=== PATIENT | female | born 1990 | race African-American/Black ===

== ENCOUNTER 2017-02-09 14:13 | Emergency (ER) | payer OTHER ==
[~2017-02-09] VITALS: Ht 162.6 cm; Wt 49.9 kg
[~2017-02-09 14:13] MED LIST: ACYC-63 PO
[2017-02-09 14:20] VITALS: BP 111/76
--- NOTE | 2017-02-09 14:31 | ED.ADGEN ---
Past History Past Medical History: No Pertinent History, Other Past Surgical History: Other Alcohol Use: Occasionally Drug Use: None Adult General Chief Complaint Chief Complaint multiple complaints HPI HPI Patient is a 26 year old female who presents with requesting a test. Pt reports MULTIPLE negative tests at home and other ERs but pt reports she hasn't had a period in 4 months. She has been told in the past there's "something" wrong with her ovary but wasn't told what. She reports vaginal discharge, intermittent upper abdominal pain, vomiting, diarrhea for 2 weeks. She reports her boyfriend has similar symptoms. No fevers, no prior abdominal surgeries. Denies control, doesn't use condoms. No PCP, hasn't seen a flask maker. Review of Systems Review of Systems Constitutional: Denies fever or chills [] Eyes: Denies change in visual acuity, redness, or eye pain [] HENT: Denies nasal congestion or sore throat [] Respiratory: Denies cough or shortness of breath [] Cardiovascular: denies chest pain Abdomen: per hpi : Denies dysuria or hematuria [] Musculoskeletal: Denies back pain or joint pain [] Integument: Denies rash or skin lesions [] Neurologic: Denies headache, focal weakness or sensory changes [] All other systems were reviewed and found to be within normal limits, except as documented in this note. Allergies Allergies Allergies Coded Allergies Type Severity Reaction Last Updated Verified No Known Drug Allergies 12/26/14 No Physical Exam Physical Exam Constitutional: Well developed, well nourished, no acute distress, non-toxic appearance. [] HENT: Normocephalic, atraumatic, bilateral external ears normal, oropharynx moist, no oral exudates, nose normal. [] Eyes: PERRLA, EOMI, conjunctiva normal, no discharge. [] Neck: Normal range of motion, no tenderness, supple, no stridor. [] Cardiovascular:Heart rate regular with regular rhythm Lungs & Thorax: no respiratory distress Abdomen:soft, no tenderness, no masses, no pulsatile masses.no adnexal ttp, no guarding or peritoneal signs, nondistended : mild yellow discharge, closed cervix, no CMT, no adnexal ttp or mass appreciated. Skin: Warm, dry, no erythema, no rash. [] Back: No tenderness, no CVA tenderness. [] Extremities: No tenderness, no cyanosis, no clubbing, ROM intact, no edema. [] Neurologic: Alert and oriented X 3, normal motor function, normal sensory function, no focal deficits noted. [] Psychologic: Affect normal, judgement normal, mood normal. [] Current Patient Data Vital Signs Vital Signs Date Time Temp Pulse Resp B/P (MAP) Pulse Ox O2 Delivery O2 Flow Rate FiO2 02/09/17 14:20 98.2 93 22 99 Room Air Lab Results Laboratory Tests Test 02/09/17 14:25 Urine Collection Type Unknown Urine Color Colorless Urine Clarity Hazy Urine pH 5.0 Urine Specific [place] <=1.005 Urine Protein Neg (NEG-TRACE) Urine Glucose (UA) Neg mg/dL (NEG) Urine Ketones (Stick) Neg mg/dL (NEG) Urine Blood Trace (NEG) Urine Nitrite Neg (NEG) Urine Bilirubin Neg (NEG) Urine Urobilinogen Dipstick 0.2 mg/dL (0.2 mg/dL) Urine Leukocyte Esterase Trace (NEG) Urine RBC 6-10 /HPF (0-2) Urine WBC 11-20 /HPF (0-4) Urine Squamous Epithelial Cells Many /LPF Urine Bacteria Many /HPF (0-FEW) Urine Test Negative (NEG) Microbiology 02/09/17 Wet Prep - Preliminary, Resulted EKG EKG [] Radiology/Procedures Radiology/Procedures [] Course & Med Decision Making Course & Med Decision Making Pertinent Labs and Imaging studies reviewed. (See chart for details) ua/ucg ordered, pevlic exam performed. UA doesn't show signs of dehyration but does show possible infection. Wet mount with WBC but no trich, Pelvic exam unremarkable and does not show signs of cervicitis. UCG continues to be negative. Strongly encourage pt the need to f/ u with automotive product engineer for further workup as to why she has amenorrhea. Counseled on safe sex practices, referral to /denzel Blood given. Dc'd with cipro 250mg BID for 3 days Final Impression Final Impression Amenorrhea Gastroenteritis UTI Problems: Dragon Disclaimer Dragon Disclaimer This electronic medical record was generated, in whole or in part, using a voice recognition dictation system. OZ MELISSA MD Feb 09, 2017 14:31
[2017-02-09 14:54] LABS: U PREG PATIENT NEGATIVE (NEG)
[2017-02-09 15:01] LABS: BILIRUBIN,URINE NEG (NEG); CLARITY,URINE HAZY; COLOR,URINE COLORLESS; GLUCOSE,URINE NEG (NEG); NITRITE,URINE NEG (NEG); UROBILINOGEN,URINE 0.2 mg/dL (0.2 mg/dL)
[2017-02-09 15:02] LABS: BACTERIA,URINE MANY /HPF (0-FEW); SQUAMOUS EPITHELIAL CELL,UR MANY /LPF
[2017-02-09] MEDS ORDERED: CIPR250T30 PO (15:50)
[2017-02-10 14:13] LABS: CHLAMYDIA PROBE Positive (Negative)
== END 2017-02-09 16:05 | disposition home or self-care (01) ==
LOC: ER 14:13
DX: N91.2 Amenorrhea, unspecified (principal); K52.9 Noninfective gastroenteritis and colitis, unspecified; N39.0 Urinary tract infection, site not specified
CPT/HCPCS: 36415; 81001; 81025; 87086; 87491; 87591; 99284; Q0111

== ENCOUNTER 2017-06-22 12:09 | Emergency (ER) | payer SELFPAY ==
[~2017-06-22] VITALS: Ht 162.6 cm; Wt 49.9 kg
[~2017-06-22 12:09] MED LIST changes: +CIPR250T30 PO
[2017-06-22 12:34] VITALS: BP 137/94
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
== END 2017-06-22 13:27 | disposition left against medical advice (07) ==
LOC: ER 12:09
DX: M54.2 Cervicalgia (principal); R51 Headache; V43.52XA Car driver injured in collision with other type car in traffic accident, initial encounter; Y93.89 Activity, other specified; Y99.8 Other external cause status; Y92.488 Other paved roadways as the place of occurrence of the external cause
CPT/HCPCS: 70450; 72125; 99284-25

== ENCOUNTER 2018-05-31 14:41 | Emergency (ER) | payer OTHER ==
[~2018-05-31] VITALS: Ht 162.6 cm; Wt 56.7 kg
[2018-05-31 15:34] LABS: BASO % 0 % (0-3); EOS # 0.1 x10^3/uL (0.0-0.7); EOS % 2 % (0-3); HEMATOCRIT 32.6 % (36.0-47.0); HEMOGLOBIN 11.2 g/dL (12.0-15.5); LYMPH # 1.2 x10^3/uL (1.0-4.8); LYMPH % 15 % (24-48); MEAN CORPUSCULAR HEMOGLOBIN 32 pg (25-35); MEAN CORPUSCULAR HGB CONC 34 g/dL (31-37); MEAN CORPUSCULAR VOLUME 92 fL (79-100); MONO # 0.5 x10^3/uL (0.0-1.1); MONO % 7 % (0-9); NEUT # 6.1 x10^3uL (1.8-7.7); NEUT % 77 % (31-73); PLATELET COUNT 251 x10^3/uL (140-400); RED BLOOD COUNT 3.53 x10^6/uL (3.50-5.40); RED CELL DISTRIBUTION WIDTH 14.1 % (11.5-14.5)
[2018-05-31 15:47] LABS: ALBUMIN 2.9 g/dL (3.4-5.0); ALBUMIN/GLOBULIN RATIO 0.8 (1.0-1.7); CALCIUM 8.4 mg/dL (8.5-10.1); CREATININE 0.6 mg/dL (0.6-1.0); GFR 147.4; POTASSIUM 3.6 mmol/L (3.5-5.1); TOTAL BILIRUBIN 0.3 mg/dL (0.2-1.0); TOTAL PROTEIN 6.5 g/dL (6.4-8.2)
--- NOTE | 2018-05-31 16:15 | RAD ---
Examination: Obstetric ultrasound limited HISTORY: History of pelvic pain COMPARISON: None available Findings: Single living intrauterine identified with heart rate of 143 bpm. The cervix measures 3.5 cm. Given LMP 12/16/2017. Clinical age 23 weeks and 5 days with estimated date of delivery by LMP 09/22/2018. Ultrasound age is 20 weeks and 6 days with expected date of delivery by ultrasound 10/12/2018. Estimated weight 385 g. Cephalic index measures 78.2. Head circumference to abdominal circumference ratio 1.16. Femur length to biparietal diameter 69.9. Femur length to head circumference 18.9. Femur length to abdominal circumference 21.9. Biparietal diameter measures 4.9 cm corresponding to 21 weeks and 0 days. Head circumference measures 18.2 cm corresponding to 20 weeks and 5 days. Abdominal circumference measures 15.8 cm corresponding to 21 weeks and 0 days. Femur length measures 3.4 cm corresponding to 20 weeks and 6 days. Amniotic fluid index measures 13.2 cm. IMPRESSION: 1. Single living intrauterine with heart rate of 143 bpm. Electronically signed by: Yovani Hummel MD (05/31/2018 4:12 PM) [id number]
--- NOTE | 2018-05-31 16:24 | PHYS DOC ---
Past History Past Medical History: No Pertinent History, Other Past Surgical History: No Surgical History Alcohol Use: Occasionally Drug Use: None Adult General Chief Complaint Chief Complaint: VAGINAL PROBLEM HPI HPI 27-year-old female who states she is approximately 20 weeks presents with some lower abdominal discomfort. She states she has not had any care. She states this is secondary to the fact that she has lost 2 siblings recently and had a lot of stress at home. She denies any fever chills or sweats. She has not had any dysuria or gross hematuria. She denies any back or flank pain. She does state that she's had a new sex partner recently and has had some foul-smelling vaginal discharge.[] Review of Systems Review of Systems Constitutional: Denies fever or chills [] Eyes: Denies change in visual acuity, redness, or eye pain [] HENT: Denies nasal congestion or sore throat [] Respiratory: Denies cough or shortness of breath [] Cardiovascular: No additional information not addressed in HPI [] GI: Per history of present illness[] : Vaginal discharge as described in the history of present illness[] Musculoskeletal: Denies back pain or joint pain [] Integument: Denies rash or skin lesions [] Neurologic: Denies headache, focal weakness or sensory changes [] Endocrine: Denies polyuria or polydipsia [] All other systems were reviewed and found to be within normal limits, except as documented in this note. Allergies Allergies Allergies Coded Allergies Type Severity Reaction Last Updated Verified No Known Drug Allergies 12/26/14 No Physical Exam Physical Exam Constitutional: Well developed, well nourished, no acute distress, non-toxic appearance. [] HENT: Normocephalic, atraumatic, bilateral external ears normal, oropharynx moist, no oral exudates, nose normal. [] Eyes: PERRLA, EOMI, conjunctiva normal, no discharge. [] Neck: Normal range of motion, no tenderness, supple, no stridor. [] Cardiovascular:Heart rate regular rhythm, no murmur [] Lungs & Thorax: Bilateral breath sounds clear to auscultation [] Abdomen: Bowel sounds normal, soft, no tenderness, no masses, no pulsatile masses, gravid uterus palpable. [] : Pelvic exam revealed the cervical os to be closed there is a thick white yellow green fishy smelling discharge bimanual exam was unrevealing Skin: Warm, dry, no erythema, no rash. [] Back: No tenderness, no CVA tenderness. [] Extremities: No tenderness, no cyanosis, no clubbing, ROM intact, no edema. [] Neurologic: Alert and oriented X 3, normal motor function, normal sensory function, no focal deficits noted. [] Psychologic: Anxious[] Current Patient Data Vital Signs Vital Signs Date Time Temp Pulse Resp B/P (MAP) Pulse Ox O2 Delivery O2 Flow Rate FiO2 05/31/18 14:50 98.1 98 18 99 Room Air Lab Results Laboratory Tests Test 05/31/18 15:20 White Blood Count 8.0 x10^3/uL (4.0-11.0) Red Blood Count 3.53 x10^6/uL (3.50-5.40) Hemoglobin 11.2 g/dL (12.0-15.5) L Hematocrit 32.6 % (36.0-47.0) L Mean Corpuscular Volume 92 fL (79-100) Mean Corpuscular Hemoglobin 32 pg (25-35) Mean Corpuscular Hemoglobin Concent 34 g/dL (31-37) Red Cell Distribution Width 14.1 % (11.5-14.5) Platelet Count 251 x10^3/uL (140-400) Neutrophils (%) (Auto) 77 % (31-73) H Lymphocytes (%) (Auto) 15 % (24-48) L Monocytes (%) (Auto) 7 % (0-9) Eosinophils (%) (Auto) 2 % (0-3) Basophils (%) (Auto) 0 % (0-3) Neutrophils # (Auto) 6.1 x10^3uL (1.8-7.7) Lymphocytes # (Auto) 1.2 x10^3/uL (1.0-4.8) Monocytes # (Auto) 0.5 x10^3/uL (0.0-1.1) Eosinophils # (Auto) 0.1 x10^3/uL (0.0-0.7) Basophils # (Auto) 0.0 x10^3/uL (0.0-0.2) Maternal Serum HCG Beta Subunit 5943 mIU/mL (0-6) H Sodium Level 136 mmol/L (136-145) Potassium Level 3.6 mmol/L (3.5-5.1) Chloride Level 102 mmol/L (98-107) Carbon Dioxide Level 27 mmol/L (21-32) Anion Gap 7 (6-14) Blood Urea Nitrogen 7 mg/dL (7-20) Creatinine 0.6 mg/dL (0.6-1.0) Estimated GFR (Cockcroft-Gault) 147.4 BUN/Creatinine Ratio 12 (6-20) Glucose Level 93 mg/dL (70-99) Calcium Level 8.4 mg/dL (8.5-10.1) L Total Bilirubin 0.3 mg/dL (0.2-1.0) Aspartate Amino Transferase (AST) 9 U/L (15-37) L Alanine Aminotransferase (ALT) 11 U/L (14-59) L Alkaline Phosphatase 48 U/L (46-116) Total Protein 6.5 g/dL (6.4-8.2) Albumin 2.9 g/dL (3.4-5.0) L Albumin/Globulin Ratio 0.8 (1.0-1.7) L Clue cells present on the wet prep EKG EKG [] Radiology/Procedures Radiology/Procedures [] Impressions: COMPARISON: None available Findings: Single living intrauterine identified with heart rate of 143 bpm. The cervix measures 3.5 cm. Given LMP 12/16/2017. Clinical age 23 weeks and 5 days with estimated date of delivery by LMP 09/22/2018. Ultrasound age is 20 weeks and 6 days with expected date of delivery by ultrasound 10/12/2018. Estimated weight 385 g. Cephalic index measures 78.2. Head circumference to abdominal circumference ratio 1.16. Femur length to biparietal diameter 69.9. Femur length to head circumference 18.9. Femur length to abdominal circumference 21.9. Biparietal diameter measures 4.9 cm corresponding to 21 weeks and 0 days. Head circumference measures 18.2 cm corresponding to 20 weeks and 5 days. Abdominal circumference measures 15.8 cm corresponding to 21 weeks and 0 days. Femur length measures 3.4 cm corresponding to 20 weeks and 6 days. Amniotic fluid index measures 13.2 cm. IMPRESSION: 1. Single living intrauterine with heart rate of 143 bpm. Course & Med Decision Making Course & Med Decision Making Pertinent Labs and Imaging studies reviewed. (See chart for details) [] Dragon Disclaimer Dragon Disclaimer This electronic medical record was generated, in whole or in part, using a voice recognition dictation system. Departure Departure: Impression: Primary Impression: Bacterial vaginosis Additional Impression: Abdominal pain affecting Disposition: HOME, SELF-CARE Condition: STABLE Referrals: PCP,NO (PCP) Patient Instructions: Abdominal Pain During , Bacterial Vaginosis Additional Instructions: Take medication as directed. He need to follow with an FIRST FRONT VENTILATOR inside of the next week for recheck. Return to the emergency department with any new or concerning symptoms Scripts Metronidazole (FLAGYL) 500 Mg Tablet 1 TAB PO BID for bacterial vaginosis, #14 TAB Prov: SHAHAB GUO DO 05/31/18 Problem Qualifiers SHAHAB GUO DO May 31, 2018 16:24
[2018-05-31 16:42] LABS: BILIRUBIN,URINE NEG (NEG); CLARITY,URINE HAZY; COLOR,URINE YELLOW; GLUCOSE,URINE NEG (NEG)
[2018-05-31 16:43] LABS: AMORPHOUS SEDIMENT,UR PRESENT /HPF; BACTERIA,URINE FEW /HPF (0-FEW); NITRITE,URINE NEG (NEG); RBC,URINE 0 /HPF (0-2); SQUAMOUS EPITHELIAL CELL,UR FEW /LPF; UROBILINOGEN,URINE 0.2 mg/dL (0.2 mg/dL); WBC,URINE OCC /HPF (0-4)
[2018-05-31] MEDS ORDERED: METR500T PO (17:21)
[2018-05-31 17:23] VITALS: BP 112/69
[2018-06-01 13:11] LABS: CHLAMYDIA PROBE Positive (Negative)
== END 2018-05-31 17:27 | disposition home or self-care (01) ==
LOC: ER 14:41
DX: O23.592 Infection of other part of genital tract in pregnancy, second trimester (principal); R10.30 Lower abdominal pain, unspecified; B96.89 Other specified bacterial agents as the cause of diseases classified elsewhere; Z3A.20 20 weeks gestation of pregnancy
CPT/HCPCS: 36415; 76815; 80053; 81001; 84702; 85025; 86900; 86901; 87086; 87491; 87591; 99284; Q0111

== ENCOUNTER 2019-08-06 11:53 | Emergency (ER) | payer MEDICAID, OTHER ==
[~2019-08-06 11:53] MED LIST changes: +METR500T PO
== END 2019-08-06 11:58 | disposition left against medical advice (07) ==
LOC: ER 11:53
DX: A64 Unspecified sexually transmitted disease (principal); Z53.21 Procedure and treatment not carried out due to patient leaving prior to being seen by health care provider